=== PATIENT | male | born 1965 | race African-American/Black ===

== ENCOUNTER 2021-07-27 05:52 | Inpatient (IN) | payer SELFPAY ==
[2021-07-27 07:20] LABS: #Eosinphils 0.1 thou/uL (0.0-0.7); #Lymphocytes 1.3 thou/uL (1.20-3.40); #Monocytes 0.9 thou/uL (0.11-0.59); #Neutrophils 8.2 thou/uL (1.40-6.50); %Basophils 0.3 % (0.0-1.0); %Eosinophils 1.2 % (0.0-10.0); %Lymphocytes 12.3 % (21.0-51.0); %Monocytes 8.2 % (0.0-10.0); %Neutrophils 78.1 % (42.0-75.0); Hemoglobin 16.2 g/dL (14.0-18.0); Mean Corpuscular HGB CONC 34.6 g/dL (32.0-36.0); Mean Corpuscular Hemoglobin 32.9 pg (27.0-31.0); Mean Corpuscular Volume 94.9 fL (78.0-98.0); Platelet Count 235 thou/uL (130-400); RBC Distribution Width 11.5 % (11.5-14.5); Red Blood Cell (RBC) Count 4.92 mill/uL (4.70-6.10); White Blood Cell (WBC) Count 10.5 thou/uL (4.8-10.8)
[2021-07-27 07:41] LABS: ALT (SGPT) 13 U/L (8-55); AST (SGOT) 15 U/L (5-34); Albumin 3.7 g/dL (3.5-5.0); Alkaline Phosphatase 60 U/L (40-110); Anion Gap 13 mmol/L (10-20); BUN (Urea Nitrogen) 12 mg/dL (8.4-25.7); Bilirubin, Total 0.9 mg/dL (0.2-1.2); Calc. Creatinine Clearance 0 mL/min (70-130); Calcium 9.1 mg/dL (7.8-10.44); Carbon Dioxide 22 mmol/L (22-29); Chloride 105 mmol/L (98-107); Glucose 119 mg/dL (70-105); Potassium 4.1 mmol/L (3.5-5.1); Protein, Total 6.7 g/dL (6.0-8.3); Sodium 136 mmol/L (136-145)
[2021-07-27] MEDS ORDERED: Ketorolac Tromethamine 30 MG/ML VIAL ONE ×2 (08:03→14:12)
[2021-07-27 08:25] LABS: Bilirubin Negative (Negative); Blood, Urine Negative (Negative); Clarity Clear (Clear); Glucose, Urine (Dipstick) Normal (Negative); Ketone, Urine Negative (Negative); Leukocyte Negative Leu/uL (Negative); Nitrite Negative (Negative); Protein, Urine (Dipstick) 20 mg/dL (Neg-Trace); Urobilinogen Normal mg/dL (Less than 2); pH, Urine 5.5 (5.0-9.0)
[2021-07-27 08:26] LABS: Specific Gravity, Urine Greater than 1.060 (1.002-1.036)
[2021-07-27] MEDS ORDERED: Fentanyl 100 MCG/2 ML VIAL ONE ×2 (09:25→13:51)
[2021-07-27 11:37] LABS: SARS-CoV-2 NAA Rapid Test Not Detected (NotDetected)
[2021-07-27] MEDS ORDERED: Bupivacaine 0.25% HCL 30 ML VIAL ONE (13:43)
[2021-07-27] MEDS ORDERED: Lidocaine 1% w/Epinephrine 1:100K 20 ML VIAL ONE (13:43)
[2021-07-27] MEDS ORDERED: Bupivacaine PF 0.5% 30 ML VIAL ONE ×2 (13:43→14:03)
[2021-07-27] MEDS ORDERED: PHENYLEPHRINE-NS 100 MCG/ML 10 ML SYRINGE ONE (14:12)
[2021-07-27] MEDS ORDERED: Lidocaine 1% PF 5 ML VIAL ONE (14:12)
[2021-07-27] MEDS ORDERED: ePHEDrine 50 MG/ML VIAL ONE (14:12)
[2021-07-27] MEDS ORDERED: PROPOFOL 200 MG/20 ML VIAL ONE (14:12)
[2021-07-27] MEDS ORDERED: Dexamethasone 20 MG/5 ML VIAL ONE (14:12)
[2021-07-27] MEDS ORDERED: Ondansetron PF 4 MG/2 ML Vial ONE (14:12)
== END 2021-07-27 18:24 | disposition home or self-care (01) | DRG 328 ==
LOC: ERS 05:52 → SJJU 09:47
PROVIDERS: ADMIT Specialist; ATTEND Specialist
PROC: 0BUT0JZ Supplement Diaphragm with Synthetic Substitute, Open Approach (ICD-10-PCS; principal; 2021-07-27)
DX: K44.0 Diaphragmatic hernia with obstruction, without gangrene (principal); F17.210 Nicotine dependence, cigarettes, uncomplicated; Z20.822 Contact with and (suspected) exposure to COVID-19
CPT/HCPCS: 36415; 74177; 80053; 81003; 85025; 94760; 96361; 96374; 96375; C1781; J0690; J1100; J1885; J2405; J2704; J3010; J3490; S0020; U0002